=== PATIENT | female | born 1975 | race Two or more races ===

== ENCOUNTER 2024-07-28 11:25 | Emergency (ER) | payer OTHER ==
[~2024-07-28] VITALS: Ht 162.6 cm; Wt 72.1 kg
[2024-07-28 11:36] VITALS: BP 128/89; O2SAT 100
[2024-07-28] MEDS ORDERED: CYMBALTA30 MG PO (11:40)
[2024-07-28] MEDS ORDERED: PYRIDIUM100 M1 (11:41)
[2024-07-28] MEDS ORDERED: [UNRECOGNIZED DRUG - OTHER] (11:41)
[2024-07-28] MEDS ORDERED: MEPERIDINE HCL/PF 50 MG/ML VIAL IM ONE (12:00)
[2024-07-28] MEDS ORDERED: 0.9 % SODIUM CHLORIDE 1,000 ML IV STA (12:00)
[2024-07-28] MEDS ORDERED: ONDANSETRON HCL 2 MG/ML VIAL IV STA (12:00)
[2024-07-28 13:26] LABS: HEMATOCRIT 39.8 % (36.0-45.00); HEMOGLOBIN 13.5 g/dL (12.0-15.00); MEAN CELL VOLUME 83.1 fL (80.00-100.00); MEAN CORPUSCULAR HEMOGLOBIN 28.2 pg (27.00-32.0); MEAN CORPUSCULAR HGB CONC 33.9 g/dl (32.0-36.0); PLATELET COUNT 405 K/uL (150-450); RED BLOOD COUNT 4.79 M/uL (4.00-6.00); RED CELL DISTRIBUTION WIDTH 13.5 % (11.5-14.5)
[2024-07-28 14:09] LABS: CALCIUM 9.6 mg/dL (8.5-10.1); CREATININE SERUM 0.51 mg/dL (0.55-1.02); GFR 129.26; POTASSIUM 3.22 mEq/L (3.5-5.1)
[2024-07-28 15:42] LABS: PH,URINE 6.5 (5.0-8.0); URINE APPEARANCE Clear; URINE BILIRRUBIN Negative (NEGATIVE); URINE BLOOD Negative; URINE COLOR Dark Yellow; URINE GLUCOSE Negative (NEGATIVE); URINE LEUKOCYTE Negative; URINE NITRATE Positive; URINE PROTEIN Negative (NEGATIVE)
[2024-07-28] MEDS ORDERED: MEPERIDINE HCL 25 MG/ML AMPUL IV ONE (15:45)
[2024-07-28 15:49] LABS: URINE BACTERIA 4.8 uL (0.0-1933); URINE EPITHELIAL CELLS 8.2 uL (0.0-38.8); URINE RBC 9.4 uL (0.0-20.8); URINE WBC 3.1 uL (0.0-23.2)
[2024-07-28 15:52] LABS: URINE KETONE 40 (NEGATIVE)
[2024-07-28] MEDS ORDERED: OxyCODONE HCL/APAP UD (PERCOCET) PO ONE (19:45)
== END 2024-07-28 21:08 | disposition home or self-care (01) ==
LOC: ER 11:27
PROVIDERS: Emergency Medicine
DX: N39.0 Urinary tract infection, site not specified (principal)